=== PATIENT | female | born 1980 | race Caucasian/White ===

== ENCOUNTER 2021-06-21 13:38 | Inpatient (IN) ==
[2021-06-21] MEDS ORDERED: Isovue-370 500 ML BOTTLE IVP ONE (17:21)
[2021-06-21] MEDS ORDERED: *HR* FentaNYL (PF) 100 MCG/2 ML VIAL IVP ONE (17:30)
[2021-06-21] MEDS ORDERED: *HR* LORazepam 2 MG/ML VIAL IVP ONE (17:30)
[2021-06-21 17:57] LABS: Basophils % 0.2 %; Eosinophils % 0.1 %; Hematocrit 33.7 % (35.3-44.9); Hemoglobin 11.4 g/dL (11.5-15.4); Immature Granulocytes % 0.4 % (0-4); Lymphocytes # 1.9 K/mcL (0.6-4.6); Mean Corpuscular HGB Conc 33.8 g/dL (31.6-35.5); Mean Corpuscular Hemoglobin 31.1 pg (28.0-33.3); Mean Corpuscular Volume 91.8 fL (83.0-100.0); Mean Platelet Volume 10.2 fL (9.4-12.4); Monocytes # 1.1 K/mcL (0.0-1.3); Monocytes % 8.5 %; Neutrophils # 9.5 K/mcL (1.6-8.9); Platelet Count 229 K/mcL (140-400); Red Blood Count 3.67 M/mcL (3.82-4.97); Segmented Neutrophils % 75.8 %; White Blood Count 12.6 K/mcL (4.3-11.1)
[2021-06-21 18:22] LABS: Alanine Aminotransferase 21 Units/L (7-52); Albumin 3.1 g/dL (3.5-5.7); Albumin/Globulin Ratio 0.9 (1.1-2.2); Alkaline Phosphatase 325 Units/L (34-104); Aspartate Amino Transferase 172 Units/L (13-39); BUN/Creatinine Ratio 6 (6-26); Bilirubin,Direct 5.1 mg/dL (0.0-0.2); Bilirubin,Indirect 4.1 mg/dL (0.0-1.0); Bilirubin,Total 9.2 mg/dL (0.3-1.0); Blood Urea Nitrogen 4 mg/dL (6-20); Calcium 8.5 mg/dL (8.6-10.3); Carbon Dioxide 23 mEq/L (23-29); Chloride 99 mEq/L (98-107); Ethanol < 10 mg/dL (Less than 10); Globulin 3.4 g/dL (2.4-3.5); Glucose 92 mg/dL (70-105); Lipase 15 Units/L (11-82); Osmolality,Calculated 279 (280-300); Potassium 3.2 mEq/L (3.5-5.1); Sodium 136 mEq/L (136-145); Total Protein 6.5 g/dL (6.4-8.9); eGFR For African Americans > 60 (> 60); eGFR For Non-African Americans > 60 (> 60)
[2021-06-21 19:29] LABS: Bacteria,Urine Moderate per hpf (None-Few); Bilirubin,Urine Moderate (Negative); Blood,Urine Negative (Negative); Clarity,Urine Clear (Clear); Color,Urine Dark-Yellow (Yellow); Glucose,Urine (UA) Normal (Normal); Ketones,Urine Negative (Negative); Leukocyte Esterase,Urine Small (Negative); Mucus,Urine Few per lpf (None-Few); Nitrite,Urine Positive (Negative); PH,Urine 6.5 pH Units (5.0-8.0); Protein,Urine Trace mg/dL (Neg-Trace); Specific Gravity,Urine > 1.030 (1.010-1.025); Squamous Epithelial Cell,Urine Moderate per hpf (None-Few); Urobilinogen,Urine >=8.0 mg/dL (Normal)
[2021-06-21] MEDS ORDERED: cefTRIAXone 1,000 MG in Water for inj. (sterile) 10 ML IVP ONE (20:18)
[2021-06-21] MEDS ORDERED: Morphine Sulfate 2 MG/ML SYRINGE IVP ONE (20:21)
[2021-06-21] MEDS ORDERED: 0.9 % Sodium Chloride 1,000 ML IVC ONE (20:22)
[2021-06-21 20:34] LABS: Hepatitis B Surface Antigen Nonreactive (Nonreactive)
[2021-06-21 21:03] LABS: Hepatitis C Virus Antibody Nonreactive (Nonreactive)
[2021-06-21 21:04] LABS: Hepatitis B Core IgM Nonreactive (Nonreactive)
[2021-06-21 21:06] LABS: Hepatitis A Antibody IgM Nonreactive (Nonreactive)
[2021-06-21 21:08] LABS: INR 2.3; Prothrombin Time 25.3 Seconds (9.4-12.1)
[2021-06-21 21:11] LABS: Activated Partial Thrombo Time 46.2 Seconds (26.0-36.0)
[2021-06-21] MEDS ORDERED: Ibuprofen 400 MG TABLET PO ONE (21:18)
[2021-06-21] MEDS ORDERED: *HR* LORazepam 2 MG/ML VIAL IVP PRN ×2 (22:13)
[2021-06-21] MEDS ORDERED: Ondansetron 4 MG/2 ML VIAL IVP PRN (22:14)
[2021-06-21] MEDS ORDERED: Naloxone 0.4 MG/ML INJ IVP PRN (22:14)
[2021-06-21] MEDS ORDERED: PrednisoLONE Oral Soln 15 MG/5 ML UDC PO ONE (22:26)
[2021-06-21 22:54] LABS: Acetaminophen < 10 mcg/mL (10-20)
[2021-06-21] MEDS: Pantoprazole 40 MG VIAL IVP SCH (23:45)
[2021-06-22] MEDS: Morphine Sulfate 2 MG/ML SYRINGE IVP PRN ×3 (00:24→22:20)
[2021-06-22] MEDS ORDERED: *HR* LORazepam 2 MG/ML VIAL IVP PRN (09:58)
[2021-06-22] MEDS: Pregabalin 75 MG CAPSULE PO SCH ×2 (10:01→22:07)
[2021-06-22] MEDS: hydrOXYzine pamoate 25 MG CAPSULE PO SCH ×3 (10:01→22:10)
[2021-06-22] MEDS: Venlafaxine XR (24 HR) 75 MG CAP.ER.24H PO SCH (10:01)
[2021-06-22] MEDS: cefTRIAXone 1,000 MG in 0.9 % Sodium Chloride 10 ML IVP SCH (10:02)
[2021-06-22] MEDS: Pantoprazole 40 MG VIAL IVP SCH (10:02)
[2021-06-22 11:51] LABS: Basophils % 0.2 %; Hematocrit 35.8 % (35.3-44.9); Hemoglobin 12.5 g/dL (11.5-15.4); Immature Granulocytes % 0.4 % (0-4); Lymphocytes # 0.9 K/mcL (0.6-4.6); Lymphocytes % 9.4 %; Mean Corpuscular HGB Conc 34.9 g/dL (31.6-35.5); Mean Corpuscular Hemoglobin 32.2 pg (28.0-33.3); Mean Corpuscular Volume 92.3 fL (83.0-100.0); Mean Platelet Volume 10.4 fL (9.4-12.4); Monocytes # 0.3 K/mcL (0.0-1.3); Monocytes % 3.2 %; Neutrophils # 8.4 K/mcL (1.6-8.9); Platelet Count 209 K/mcL (140-400); Red Blood Count 3.88 M/mcL (3.82-4.97); Red Cell Distribution Width 16.7 % (11.5-14.5); Segmented Neutrophils % 86.8 %; White Blood Count 9.7 K/mcL (4.3-11.1)
[2021-06-22 11:58] LABS: INR 2.4; Prothrombin Time 26.5 Seconds (9.4-12.1)
[2021-06-22 12:00] LABS: Activated Partial Thrombo Time 45.9 Seconds (26.0-36.0)
[2021-06-22 12:34] LABS: Folate 21.3 ng/mL (3.0-16.0)
[2021-06-22 12:43] LABS: % Iron Saturation 30 % (15-50); Alanine Aminotransferase 20 Units/L (7-52); Albumin 3.1 g/dL (3.5-5.7); Albumin/Globulin Ratio 0.9 (1.1-2.2); Alkaline Phosphatase 332 Units/L (34-104); Aspartate Amino Transferase 159 Units/L (13-39); BUN/Creatinine Ratio 8 (6-26); Bilirubin,Direct 5.3 mg/dL (0.0-0.2); Bilirubin,Indirect 4.4 mg/dL (0.0-1.0); Bilirubin,Total 9.7 mg/dL (0.3-1.0); Blood Urea Nitrogen 4 mg/dL (6-20); Calcium 8.3 mg/dL (8.6-10.3); Carbon Dioxide 25 mEq/L (23-29); Chloride 103 mEq/L (98-107); Chol/HDL Ratio 23.4 (0-4.9); Cholesterol 211 mg/dL (< 200); Ferritin 92 ng/mL (10-120); Globulin 3.3 g/dL (2.4-3.5); Glucose 105 mg/dL (70-105); HDL Cholesterol 9 mg/dL (40-59); Iron 63 mcg/dL (50-170); LDL Cholesterol,Calculated 172 mg/dL (< 100); Lactate Dehydrogenase 178 Units/L (140-271); Magnesium 2.1 mg/dL (1.6-2.6); Osmolality,Calculated 279 (280-300); Phosphorous 2.2 mg/dL (2.7-4.5); Sodium 136 mEq/L (136-145); Thyroid Stimulating Hormone 2.585 mcIU/mL (0.340-5.600); Total Protein 6.4 g/dL (6.4-8.9); Transferrin 148 mg/dL (203-362); Triglycerides 148 mg/dL (< 150); Vitamin B12 > 1500 pg/mL (250-1100); eGFR For African Americans > 60 (> 60); eGFR For Non-African Americans > 60 (> 60)
[2021-06-22] MEDS ORDERED: Gadolinium Contrast Agent (WT Based) IV PRN (15:11)
[2021-06-22] MEDS: PrednisoLONE Oral Soln 15 MG/5 ML UDC PO SCH (16:45)
[2021-06-22] MEDS: rOPINIRole 0.25 MG TABLET PO SCH (22:07)
[2021-06-22] MEDS: Thiamine (B-1) 100 MG, Folic Acid 1 MG in 0.9 % Sodium Chloride 500 ML IVPB SCH (22:11)
[2021-06-23 05:59] LABS: Hematocrit 31.9 % (35.3-44.9); Immature Granulocytes % 0.7 % (0-4); Lymphocytes % 10.3 %; Mean Corpuscular HGB Conc 33.5 g/dL (31.6-35.5); Mean Corpuscular Hemoglobin 31.8 pg (28.0-33.3); Mean Corpuscular Volume 94.7 fL (83.0-100.0); Mean Platelet Volume 10.4 fL (9.4-12.4); Monocytes # 0.4 K/mcL (0.0-1.3); Monocytes % 4.7 %; Neutrophils # 7.8 K/mcL (1.6-8.9); Platelet Count 192 K/mcL (140-400); Red Blood Count 3.37 M/mcL (3.82-4.97); Red Cell Distribution Width 17.1 % (11.5-14.5); Segmented Neutrophils % 84.3 %; White Blood Count 9.2 K/mcL (4.3-11.1)
[2021-06-23 06:23] LABS: Hemoglobin 10.7 g/dL (11.5-15.4)
[2021-06-23 06:53] LABS: Alanine Aminotransferase 18 Units/L (7-52); Albumin 2.8 g/dL (3.5-5.7); Alkaline Phosphatase 282 Units/L (34-104); Aspartate Amino Transferase 129 Units/L (13-39); BUN/Creatinine Ratio 11 (6-26); Bilirubin,Total 7.3 mg/dL (0.3-1.0); Blood Urea Nitrogen 5 mg/dL (6-20); Calcium 8.1 mg/dL (8.6-10.3); Carbon Dioxide 26 mEq/L (23-29); Chloride 106 mEq/L (98-107); Globulin 2.9 g/dL (2.4-3.5); Glucose 115 mg/dL (70-105); Osmolality,Calculated 284 (280-300); Potassium 4.1 mEq/L (3.5-5.1); Sodium 138 mEq/L (136-145); Total Protein 5.7 g/dL (6.4-8.9); eGFR For African Americans > 60 (> 60); eGFR For Non-African Americans > 60 (> 60)
[2021-06-23] MEDS: Morphine Sulfate 2 MG/ML SYRINGE IVP PRN ×2 (10:17→21:03)
[2021-06-23] MEDS: cefTRIAXone 1,000 MG in 0.9 % Sodium Chloride 10 ML IVP SCH (10:18)
[2021-06-23] MEDS: hydrOXYzine pamoate 25 MG CAPSULE PO SCH ×3 (10:18→21:02)
[2021-06-23] MEDS: Venlafaxine XR (24 HR) 75 MG CAP.ER.24H PO SCH (10:18)
[2021-06-23] MEDS: Pregabalin 75 MG CAPSULE PO SCH ×2 (10:18→21:01)
[2021-06-23] MEDS: Pantoprazole 40 MG VIAL IVP SCH (10:19)
[2021-06-23] MEDS: PrednisoLONE Oral Soln 15 MG/5 ML UDC PO SCH (10:20)
[2021-06-23 10:42] LABS: INR 2.3; Prothrombin Time 25.2 Seconds (9.4-12.1)
[2021-06-23 10:54] LABS: Albumin/Globulin Ratio 0.9 (1.1-2.2); Bilirubin,Direct 4.6 mg/dL (0.0-0.2); Bilirubin,Indirect 3.2 mg/dL (0.0-1.0); Bilirubin,Total 7.8 mg/dL (0.3-1.0); Globulin 3.4 g/dL (2.4-3.5); Total Protein 6.4 g/dL (6.4-8.9)
[2021-06-23] MEDS: Thiamine (B-1) 100 MG, Folic Acid 1 MG in 0.9 % Sodium Chloride 500 ML IVPB SCH (18:20)
[2021-06-23] MEDS: rOPINIRole 0.25 MG TABLET PO SCH (21:02)
[2021-06-24] MEDS ORDERED: *HR* Enoxaparin 40 MG/0.4 ML SYRINGE SQ SCH (06:00)
[2021-06-24 06:44] LABS: Basophils % 0.2 %; Eosinophils # 0.1 K/mcL (0.0-0.6); Eosinophils % 0.9 %; Hematocrit 34.9 % (35.3-44.9); Hemoglobin 11.6 g/dL (11.5-15.4); Immature Granulocytes % 0.4 % (0-4); Lymphocytes # 1.9 K/mcL (0.6-4.6); Lymphocytes % 14.9 %; Mean Corpuscular HGB Conc 33.2 g/dL (31.6-35.5); Mean Corpuscular Hemoglobin 31.4 pg (28.0-33.3); Mean Corpuscular Volume 94.6 fL (83.0-100.0); Mean Platelet Volume 10.8 fL (9.4-12.4); Monocytes # 0.7 K/mcL (0.0-1.3); Monocytes % 5.8 %; Neutrophils # 9.8 K/mcL (1.6-8.9); Platelet Count 187 K/mcL (140-400); Red Blood Count 3.69 M/mcL (3.82-4.97); Red Cell Distribution Width 17.2 % (11.5-14.5); Segmented Neutrophils % 77.8 %; White Blood Count 12.6 K/mcL (4.3-11.1)
[2021-06-24 07:08] LABS: Alanine Aminotransferase 23 Units/L (7-52); Albumin 2.7 g/dL (3.5-5.7); Albumin/Globulin Ratio 0.9 (1.1-2.2); Alkaline Phosphatase 279 Units/L (34-104); Aspartate Amino Transferase 197 Units/L (13-39); BUN/Creatinine Ratio 13 (6-26); Bilirubin,Total 6.5 mg/dL (0.3-1.0); Blood Urea Nitrogen 7 mg/dL (6-20); Calcium 8.1 mg/dL (8.6-10.3); Carbon Dioxide 25 mEq/L (23-29); Chloride 106 mEq/L (98-107); Glucose 78 mg/dL (70-105); Osmolality,Calculated 281 (280-300); Potassium 3.5 mEq/L (3.5-5.1); Sodium 137 mEq/L (136-145); Total Protein 5.7 g/dL (6.4-8.9); eGFR For African Americans > 60 (> 60); eGFR For Non-African Americans > 60 (> 60)
[2021-06-24] MEDS: PrednisoLONE Oral Soln 15 MG/5 ML UDC PO SCH (08:33)
[2021-06-24] MEDS: Pregabalin 75 MG CAPSULE PO SCH (08:33)
[2021-06-24] MEDS: cephALEXin 500 MG CAPSULE PO SCH ×2 (08:33→14:26)
[2021-06-24] MEDS: Venlafaxine XR (24 HR) 75 MG CAP.ER.24H PO SCH (08:33)
[2021-06-24] MEDS: Pantoprazole 40 MG VIAL IVP SCH (08:33)
[2021-06-24] MEDS: hydrOXYzine pamoate 25 MG CAPSULE PO SCH ×2 (08:33→14:26)
[2021-06-24] MEDS: Morphine Sulfate 2 MG/ML SYRINGE IVP PRN ×2 (08:34→14:26)
[2021-06-24 10:16] VITALS: BP 95/59; PULSE 84; TEMP 98; O2SAT 95
[2021-06-24 12:50] LABS: AFP Tumor Marker Non-Pregnant 3 ng/mL (0-9)
[2021-06-25 08:25] LABS: F-Actin (sm muscle) Ab IgG 18 Units (0-19)
[2021-06-26 07:57] LABS: ANA IgG by ELISA NONE DETECTED (None Detected)
[2021-06-26 18:16] LABS: ANCA IFA Titer <1:20 (<1:20)
[2021-06-27 10:52] LABS: ANCA IFA Pattern NONE DETECTED (None Detected); Serine Protease-3 Antibody 1 AU/mL (0-19)
== END 2021-06-24 16:50 | disposition home health service (06) | DRG 433 ==
LOC: EMEROOARM 13:38 → 3ANU 13:38 → SUATTDRO 23:50
PROVIDERS: ADMIT Internal Medicine; ATTEND Family Medicine

== ENCOUNTER 2021-07-06 02:34 | Inpatient (IN) ==
[2021-07-06] MEDS ORDERED: cefTRIAXone 2,000 MG in 0.9 % Sodium Chloride Mini Bag 100 ML IVPB ONE (03:12)
[2021-07-06] MEDS ORDERED: *HR* OxyCODONE Immed Rel 5 MG TABLET PO ONE (03:15)
[2021-07-06] MEDS ORDERED: Isovue-370 500 ML BOTTLE IVP ONE (03:50)
[2021-07-06 04:06] LABS: Bilirubin,Urine Negative (Negative); Blood,Urine Negative (Negative); Clarity,Urine Clear (Clear); Color,Urine Light-Yellow (Yellow); Glucose,Urine (UA) Normal (Normal); Ketones,Urine Negative (Negative); Leukocyte Esterase,Urine Negative (Negative); Nitrite,Urine Negative (Negative); PH,Urine 6.5 pH Units (5.0-8.0); Protein,Urine Negative (Neg-Trace); Specific Gravity,Urine 1.008 (1.010-1.025); Urobilinogen,Urine Normal (Normal)
[2021-07-06] MEDS ORDERED: *HR* FentaNYL (PF) 100 MCG/2 ML VIAL IVP ONE ×2 (04:09→06:46)
[2021-07-06 04:32] LABS: Alanine Aminotransferase 59 Units/L (7-52); Albumin 3.2 g/dL (3.5-5.7); Alkaline Phosphatase 232 Units/L (34-104); Aspartate Amino Transferase 280 Units/L (13-39); BUN/Creatinine Ratio 14 (6-26); Bilirubin,Indirect 3.8 mg/dL (0.0-1.0); Bilirubin,Total 7.8 mg/dL (0.3-1.0); Blood Urea Nitrogen 8 mg/dL (6-20); Calcium 8.3 mg/dL (8.6-10.3); Carbon Dioxide 25 mEq/L (23-29); Chloride 103 mEq/L (98-107); Globulin 3.2 g/dL (2.4-3.5); Glucose 116 mg/dL (70-105); Lipase 12 Units/L (11-82); Magnesium 1.8 mg/dL (1.6-2.6); Osmolality,Calculated 289 (280-300); Phosphorous 2.9 mg/dL (2.7-4.5); Potassium 3.4 mEq/L (3.5-5.1); Sodium 140 mEq/L (136-145); Total Protein 6.4 g/dL (6.4-8.9); Troponin I < 0.03 ng/mL (< 0.04); eGFR For African Americans > 60 (> 60); eGFR For Non-African Americans > 60 (> 60)
[2021-07-06 04:47] LABS: Basophils % 0.1 %; Eosinophils # 0.1 K/mcL (0.0-0.6); Eosinophils % 0.5 %; Hematocrit 33.8 % (35.3-44.9); Hemoglobin 11.7 g/dL (11.5-15.4); Immature Granulocytes % 0.7 % (0-4); Lymphocytes # 0.8 K/mcL (0.6-4.6); Lymphocytes % 4.6 %; Mean Corpuscular HGB Conc 34.6 g/dL (31.6-35.5); Mean Corpuscular Hemoglobin 32.1 pg (28.0-33.3); Mean Corpuscular Volume 92.9 fL (83.0-100.0); Mean Platelet Volume 11.1 fL (9.4-12.4); Monocytes # 0.7 K/mcL (0.0-1.3); Neutrophils # 15.9 K/mcL (1.6-8.9); Platelet Count 180 K/mcL (140-400); Red Blood Count 3.64 M/mcL (3.82-4.97); Red Cell Distribution Width 17.2 % (11.5-14.5); Segmented Neutrophils % 90.1 %; White Blood Count 17.7 K/mcL (4.3-11.1)
[2021-07-06 06:10] LABS: INR 2.1; Prothrombin Time 23.3 Seconds (9.4-12.1)
[2021-07-06] MEDS ORDERED: 0.9 % Sodium Chloride 1,000 ML IVC ONE (06:45)
[2021-07-06] MEDS ORDERED: *HR* Heparin 5,000 UNIT/ML VIAL IVP PRN ×2 (06:54)
[2021-07-06] MEDS ORDERED: *HR* Heparin 5,000 UNIT/ML VIAL IVP ONE (06:54)
[2021-07-06] MEDS ORDERED: Heparin 25,000UNIT/250ML 1/2NS 25,000 UNIT/250 ML IV.SOLN IVC SCH (07:00)
[2021-07-06] MEDS ORDERED: Melatonin 3 MG TABLET PO PRN (07:34)
[2021-07-06] MEDS ORDERED: Naloxone 0.4 MG/ML INJ IVP PRN (07:34)
[2021-07-06] MEDS ORDERED: methylPREDNISolone 4 MG TABLET PO ONE (09:38)
[2021-07-06] MEDS: Venlafaxine XR (24 HR) 75 MG CAP.ER.24H PO SCH (10:15)
[2021-07-06] MEDS: Folic Acid 1 MG TABLET PO SCH (10:15)
[2021-07-06] MEDS: Thiamine (B-1) 100 MG TABLET PO SCH (10:15)
[2021-07-06] MEDS: Furosemide 40 MG TABLET PO SCH (10:15)
[2021-07-06] MEDS: Cyanocobalamin (B-12) 1,000 MCG TABLET PO SCH (10:16)
[2021-07-06] MEDS: *HR* LORazepam 0.5 MG TABLET PO PRN ×2 (10:16→17:39)
[2021-07-06] MEDS: rOPINIRole 0.25 MG TABLET PO SCH (20:09)
[2021-07-06] MEDS: hydrOXYzine pamoate 25 MG CAPSULE PO SCH (20:09)
[2021-07-07 01:47] LABS: Prothrombin Time 22.5 Seconds (9.4-12.1)
[2021-07-07 01:59] LABS: Albumin/Globulin Ratio 1.1 (1.1-2.2); Bilirubin,Direct 3.6 mg/dL (0.0-0.2); Bilirubin,Indirect 3.1 mg/dL (0.0-1.0); Bilirubin,Total 6.7 mg/dL (0.3-1.0); Globulin 2.7 g/dL (2.4-3.5); Total Protein 5.7 g/dL (6.4-8.9)
[2021-07-07] MEDS: *HR* Enoxaparin 40 MG/0.4 ML SYRINGE SQ SCH (05:36)
[2021-07-07] MEDS: Furosemide 40 MG TABLET PO SCH (09:46)
[2021-07-07] MEDS: Thiamine (B-1) 100 MG TABLET PO SCH (09:46)
[2021-07-07] MEDS: Folic Acid 1 MG TABLET PO SCH (09:48)
[2021-07-07] MEDS: Venlafaxine XR (24 HR) 75 MG CAP.ER.24H PO SCH (09:48)
[2021-07-07] MEDS: Cyanocobalamin (B-12) 1,000 MCG TABLET PO SCH (09:49)
[2021-07-07] MEDS: cefTRIAXone 2,000 MG in 0.9 % Sodium Chloride 20 ML IVP SCH (09:52)
[2021-07-07] MEDS ORDERED: predniSONE 20 MG TABLET PO SCH (10:15)
[2021-07-07] MEDS: *HR* LORazepam 0.5 MG TABLET PO PRN (17:33)
[2021-07-07] MEDS: rOPINIRole 0.25 MG TABLET PO SCH (20:53)
[2021-07-07] MEDS: hydrOXYzine pamoate 25 MG CAPSULE PO SCH (20:53)
[2021-07-08 03:26] LABS: Basophils % 0.1 %; Eosinophils % 0.2 %; Hemoglobin 10.5 g/dL (11.5-15.4); Immature Granulocytes % 0.4 % (0-4); Mean Corpuscular HGB Conc 33.9 g/dL (31.6-35.5); Mean Corpuscular Hemoglobin 32.5 pg (28.0-33.3); Mean Platelet Volume 10.7 fL (9.4-12.4); Monocytes # 0.5 K/mcL (0.0-1.3); Monocytes % 4.1 %; Neutrophils # 11.3 K/mcL (1.6-8.9); Platelet Count 149 K/mcL (140-400); Red Blood Count 3.23 M/mcL (3.82-4.97); Red Cell Distribution Width 17.2 % (11.5-14.5); Segmented Neutrophils % 87.2 %; White Blood Count 12.9 K/mcL (4.3-11.1)
[2021-07-08 03:36] LABS: INR 2.1; Prothrombin Time 22.8 Seconds (9.4-12.1)
[2021-07-08 03:39] LABS: Alanine Aminotransferase 57 Units/L (7-52); Albumin 2.9 g/dL (3.5-5.7); Albumin/Globulin Ratio 1.2 (1.1-2.2); Alkaline Phosphatase 210 Units/L (34-104); Aspartate Amino Transferase 236 Units/L (13-39); BUN/Creatinine Ratio 22 (6-26); Bilirubin,Total 6.2 mg/dL (0.3-1.0); Blood Urea Nitrogen 9 mg/dL (6-20); Calcium 8.2 mg/dL (8.6-10.3); Carbon Dioxide 27 mEq/L (23-29); Chloride 101 mEq/L (98-107); Globulin 2.4 g/dL (2.4-3.5); Glucose 101 mg/dL (70-105); Osmolality,Calculated 281 (280-300); Potassium 3.8 mEq/L (3.5-5.1); Sodium 136 mEq/L (136-145); Total Protein 5.3 g/dL (6.4-8.9); eGFR For African Americans > 60 (> 60); eGFR For Non-African Americans > 60 (> 60)
[2021-07-08] MEDS: *HR* Enoxaparin 40 MG/0.4 ML SYRINGE SQ SCH (06:15)
[2021-07-08] MEDS: *HR* LORazepam 0.5 MG TABLET PO PRN ×2 (06:20→21:12)
[2021-07-08] MEDS: methylPREDNISolone 125 MG/2 ML VIAL IVP SCH (10:58)
[2021-07-08] MEDS: cefTRIAXone 2,000 MG in 0.9 % Sodium Chloride 20 ML IVP SCH (10:58)
[2021-07-08] MEDS: Ondansetron ODT 4 MG TAB.RAPDIS SL PRN (10:59)
[2021-07-08] MEDS: Venlafaxine XR (24 HR) 75 MG CAP.ER.24H PO SCH (11:07)
[2021-07-08] MEDS: Thiamine (B-1) 100 MG TABLET PO SCH (11:08)
[2021-07-08] MEDS: Cyanocobalamin (B-12) 1,000 MCG TABLET PO SCH (11:08)
[2021-07-08] MEDS: Folic Acid 1 MG TABLET PO SCH (11:08)
[2021-07-08] MEDS: Furosemide 40 MG TABLET PO SCH (11:08)
[2021-07-08] MEDS: Venlafaxine XR (24 HR) 37.5 MG CAP.ER.24H PO SCH (12:30)
[2021-07-08] MEDS: Lactulose Oral Soln 20 GM/30 ML UDC PO SCH ×2 (12:30→21:11)
[2021-07-08] MEDS: rOPINIRole 0.25 MG TABLET PO SCH (21:12)
[2021-07-08] MEDS: hydrOXYzine pamoate 25 MG CAPSULE PO SCH (21:12)
[2021-07-08 22:43] LABS: A.calcoaceticus-baumannii cplx Not Detected (Not Detect); Bacteroides fragilis by PCR Not Detected (Not Detect); Candida albicans by PCR Not Detected (Not Detect); Candida auris by PCR Not Detected (Not Detect); Candida glabrata by PCR Not Detected (Not Detect); Candida krusei by PCR Not Detected (Not Detect); Candida parapsilosis by PCR Not Detected (Not Detect); Candida tropicalis by PCR Not Detected (Not Detect); Enterobacter cloacae Cmplx PCR Not Detected (Not Detect); Enterobacterales by PCR Not Detected (Not Detect); Enterococcus faecalis by PCR Not Detected (Not Detect); Enterococcus faecium by PCR Not Detected (Not Detect); Escherichia coli by PCR Not Detected (Not Detect); Klebs. pneumoniae group by PCR Not Detected (Not Detect); Klebsiella aerogenes by PCR Not Detected (Not Detect); Klebsiella oxytoca by PCR Not Detected (Not Detect); Proteus by PCR Not Detected (Not Detect); Pseudomonas aeruginosa by PCR Not Detected (Not Detect); Salmonella species by PCR Not Detected (Not Detect); Serratia marcescens by PCR Not Detected (Not Detect); Staph epidermidis by PCR Not Detected (Not Detect); Staph lugdunensis by PCR Not Detected (Not Detect); Staphylococcus aureus by PCR Not Detected (Not Detect); Staphylococcus by PCR Not Detected (Not Detect); Stenotrophomonas maltophilia Not Detected (Not Detect); Streptococcus agalactiae(B)PCR Not Detected (Not Detect); Streptococcus by PCR Not Detected (Not Detect); Streptococcus pneumoniae PCR Not Detected (Not Detect); Streptococcus pyogenes (A) PCR Not Detected (Not Detect); vanA/B Vancomycin-Resist Genes Not Detected (Not Detect)
[2021-07-08 22:44] LABS: Crypto. neoformans/gattii PCR Not Detected (Not Detect)
[2021-07-09] MEDS: *HR* Enoxaparin 40 MG/0.4 ML SYRINGE SQ SCH (05:52)
[2021-07-09] MEDS ORDERED: Perflutren Lipid Microsphere 1.3 ML in 0.9 % Sodium Chloride 8.7 ML IVP PRN (08:01)
[2021-07-09] MEDS ORDERED: Vancomycin 1,500 MG/265 ML IV.SOLN IVPB ONE (08:21)
[2021-07-09 10:27] LABS: Basophils % 0.1 %; Eosinophils # 0.2 K/mcL (0.0-0.6); Eosinophils % 1.1 %; Hematocrit 36.3 % (35.3-44.9); Immature Granulocytes % 0.4 % (0-4); Lymphocytes # 1.6 K/mcL (0.6-4.6); Mean Corpuscular HGB Conc 33.6 g/dL (31.6-35.5); Mean Corpuscular Hemoglobin 32.8 pg (28.0-33.3); Mean Corpuscular Volume 97.6 fL (83.0-100.0); Mean Platelet Volume 10.8 fL (9.4-12.4); Monocytes # 0.7 K/mcL (0.0-1.3); Monocytes % 4.3 %; Neutrophils # 13.4 K/mcL (1.6-8.9); Platelet Count 191 K/mcL (140-400); Red Blood Count 3.72 M/mcL (3.82-4.97); Segmented Neutrophils % 84.1 %
[2021-07-09 10:28] LABS: Hemoglobin 12.2 g/dL (11.5-15.4)
[2021-07-09] MEDS: cefTRIAXone 2,000 MG in 0.9 % Sodium Chloride 20 ML IVP SCH (10:29)
[2021-07-09] MEDS: Venlafaxine XR (24 HR) 37.5 MG CAP.ER.24H PO SCH (10:30)
[2021-07-09] MEDS: Furosemide 40 MG TABLET PO SCH (10:30)
[2021-07-09] MEDS: Folic Acid 1 MG TABLET PO SCH (10:31)
[2021-07-09] MEDS: Thiamine (B-1) 100 MG TABLET PO SCH (10:31)
[2021-07-09] MEDS: Cyanocobalamin (B-12) 1,000 MCG TABLET PO SCH (10:32)
[2021-07-09] MEDS: Lactulose Oral Soln 20 GM/30 ML UDC PO SCH ×2 (10:36→20:56)
[2021-07-09] MEDS: methylPREDNISolone 125 MG/2 ML VIAL IVP SCH (10:37)
[2021-07-09 10:44] LABS: Alanine Aminotransferase 71 Units/L (7-52); Albumin 3.3 g/dL (3.5-5.7); Albumin/Globulin Ratio 1.1 (1.1-2.2); Alkaline Phosphatase 229 Units/L (34-104); Aspartate Amino Transferase 272 Units/L (13-39); BUN/Creatinine Ratio 17 (6-26); Bilirubin,Direct 3.8 mg/dL (0.0-0.2); Bilirubin,Indirect 3.4 mg/dL (0.0-1.0); Bilirubin,Total 7.2 mg/dL (0.3-1.0); Blood Urea Nitrogen 8 mg/dL (6-20); Calcium 8.7 mg/dL (8.6-10.3); Carbon Dioxide 28 mEq/L (23-29); Chloride 102 mEq/L (98-107); Globulin 2.9 g/dL (2.4-3.5); Glucose 72 mg/dL (70-105); Osmolality,Calculated 289 (280-300); Potassium 3.8 mEq/L (3.5-5.1); Sodium 141 mEq/L (136-145); Total Protein 6.2 g/dL (6.4-8.9); eGFR For African Americans > 60 (> 60); eGFR For Non-African Americans > 60 (> 60)
[2021-07-09] MEDS: hydrOXYzine pamoate 25 MG CAPSULE PO SCH (20:56)
[2021-07-09] MEDS: rOPINIRole 0.25 MG TABLET PO SCH (20:56)
[2021-07-09] MEDS: *HR* LORazepam 0.5 MG TABLET PO PRN (20:56)
[2021-07-09] MEDS: Vancomycin 1,250 MG/262.5 ML IV.SOLN IVPB SCH (23:14)
[2021-07-10] MEDS: *HR* Enoxaparin 40 MG/0.4 ML SYRINGE SQ SCH (05:38)
[2021-07-10 06:58] LABS: Basophils % 0.1 %; Eosinophils # 0.2 K/mcL (0.0-0.6); Eosinophils % 1.2 %; Hematocrit 31.4 % (35.3-44.9); Hemoglobin 10.9 g/dL (11.5-15.4); Immature Granulocytes % 0.5 % (0-4); Lymphocytes # 1.5 K/mcL (0.6-4.6); Lymphocytes % 10.8 %; Mean Corpuscular HGB Conc 34.7 g/dL (31.6-35.5); Mean Corpuscular Hemoglobin 33.3 pg (28.0-33.3); Mean Platelet Volume 10.7 fL (9.4-12.4); Monocytes # 0.7 K/mcL (0.0-1.3); Monocytes % 4.8 %; Neutrophils # 11.3 K/mcL (1.6-8.9); Platelet Count 145 K/mcL (140-400); Red Blood Count 3.27 M/mcL (3.82-4.97); Red Cell Distribution Width 16.7 % (11.5-14.5); Segmented Neutrophils % 82.6 %; White Blood Count 13.6 K/mcL (4.3-11.1)
[2021-07-10] MEDS: Lactulose Oral Soln 20 GM/30 ML UDC PO SCH ×2 (08:40→21:32)
[2021-07-10] MEDS: Cyanocobalamin (B-12) 1,000 MCG TABLET PO SCH (08:41)
[2021-07-10] MEDS: Venlafaxine XR (24 HR) 37.5 MG CAP.ER.24H PO SCH (08:41)
[2021-07-10] MEDS: Furosemide 40 MG TABLET PO SCH (08:41)
[2021-07-10] MEDS: Folic Acid 1 MG TABLET PO SCH (08:41)
[2021-07-10] MEDS: cefTRIAXone 2,000 MG in 0.9 % Sodium Chloride 20 ML IVP SCH (08:42)
[2021-07-10] MEDS: methylPREDNISolone 125 MG/2 ML VIAL IVP SCH (08:42)
[2021-07-10] MEDS: Thiamine (B-1) 100 MG TABLET PO SCH (08:48)
[2021-07-10 08:58] LABS: Alanine Aminotransferase 60 Units/L (7-52); Albumin 2.9 g/dL (3.5-5.7); Alkaline Phosphatase 190 Units/L (34-104); Aspartate Amino Transferase 222 Units/L (13-39); BUN/Creatinine Ratio 26 (6-26); Bilirubin,Total 5.7 mg/dL (0.3-1.0); Blood Urea Nitrogen 10 mg/dL (6-20); Calcium 8.2 mg/dL (8.6-10.3); Carbon Dioxide 29 mEq/L (23-29); Chloride 102 mEq/L (98-107); Globulin 2.8 g/dL (2.4-3.5); Glucose 78 mg/dL (70-105); Osmolality,Calculated 282 (280-300); Potassium 3.8 mEq/L (3.5-5.1); Sodium 137 mEq/L (136-145); Total Protein 5.7 g/dL (6.4-8.9); eGFR For African Americans > 60 (> 60); eGFR For Non-African Americans > 60 (> 60)
[2021-07-10] MEDS: Vancomycin 1,250 MG/262.5 ML IV.SOLN IVPB SCH (09:27)
[2021-07-10 13:39] LABS: Prothrombin Time 22.6 Seconds (9.4-12.1)
[2021-07-10] MEDS: Ondansetron ODT 4 MG TAB.RAPDIS SL PRN (15:49)
[2021-07-10] MEDS: rOPINIRole 0.25 MG TABLET PO SCH (21:32)
[2021-07-10] MEDS: hydrOXYzine pamoate 25 MG CAPSULE PO SCH (21:33)
[2021-07-10] MEDS: *HR* LORazepam 0.5 MG TABLET PO PRN (21:33)
[2021-07-11] MEDS: *HR* Enoxaparin 40 MG/0.4 ML SYRINGE SQ SCH (05:51)
[2021-07-11 05:52] LABS: Basophils % 0.1 %; Eosinophils # 0.2 K/mcL (0.0-0.6); Eosinophils % 1.5 %; Hematocrit 34.6 % (35.3-44.9); Hemoglobin 11.5 g/dL (11.5-15.4); Immature Granulocytes % 0.8 % (0-4); Lymphocytes # 1.5 K/mcL (0.6-4.6); Lymphocytes % 9.2 %; Mean Corpuscular HGB Conc 33.2 g/dL (31.6-35.5); Mean Corpuscular Hemoglobin 32.4 pg (28.0-33.3); Mean Corpuscular Volume 97.5 fL (83.0-100.0); Mean Platelet Volume 10.4 fL (9.4-12.4); Monocytes # 0.7 K/mcL (0.0-1.3); Monocytes % 4.3 %; Neutrophils # 13.3 K/mcL (1.6-8.9); Platelet Count 146 K/mcL (140-400); Red Blood Count 3.55 M/mcL (3.82-4.97); Red Cell Distribution Width 16.8 % (11.5-14.5); Segmented Neutrophils % 84.1 %; White Blood Count 15.8 K/mcL (4.3-11.1)
[2021-07-11 05:58] LABS: INR 1.9; Prothrombin Time 21.2 Seconds (9.4-12.1)
[2021-07-11 06:10] LABS: Alanine Aminotransferase 63 Units/L (7-52); Albumin/Globulin Ratio 1.1 (1.1-2.2); Alkaline Phosphatase 211 Units/L (34-104); Aspartate Amino Transferase 206 Units/L (13-39); BUN/Creatinine Ratio 22 (6-26); Bilirubin,Total 5.3 mg/dL (0.3-1.0); Blood Urea Nitrogen 9 mg/dL (6-20); Calcium 8.2 mg/dL (8.6-10.3); Carbon Dioxide 29 mEq/L (23-29); Chloride 103 mEq/L (98-107); Globulin 2.8 g/dL (2.4-3.5); Glucose 89 mg/dL (70-105); Osmolality,Calculated 286 (280-300); Potassium 3.4 mEq/L (3.5-5.1); Sodium 139 mEq/L (136-145); Total Protein 5.8 g/dL (6.4-8.9); eGFR For African Americans > 60 (> 60); eGFR For Non-African Americans > 60 (> 60)
[2021-07-11] MEDS: Folic Acid 1 MG TABLET PO SCH (08:18)
[2021-07-11] MEDS: Thiamine (B-1) 100 MG TABLET PO SCH (08:19)
[2021-07-11] MEDS: Lactulose Oral Soln 20 GM/30 ML UDC PO SCH (08:19)
[2021-07-11] MEDS: Furosemide 40 MG TABLET PO SCH (08:20)
[2021-07-11] MEDS: cefTRIAXone 2,000 MG in 0.9 % Sodium Chloride 20 ML IVP SCH (08:20)
[2021-07-11] MEDS: Venlafaxine XR (24 HR) 37.5 MG CAP.ER.24H PO SCH (08:20)
[2021-07-11] MEDS: Cyanocobalamin (B-12) 1,000 MCG TABLET PO SCH (08:20)
[2021-07-11] MEDS ORDERED: PrednisoLONE Oral Soln 15 MG/5 ML UDC PO SCH (09:15)
[2021-07-11 10:09] LABS: A.calcoaceticus-baumannii cplx Not Detected (Not Detect); Bacteroides fragilis by PCR Not Detected (Not Detect); Candida albicans by PCR Not Detected (Not Detect); Candida auris by PCR Not Detected (Not Detect); Candida glabrata by PCR Not Detected (Not Detect); Candida krusei by PCR Not Detected (Not Detect); Candida parapsilosis by PCR Not Detected (Not Detect); Candida tropicalis by PCR Not Detected (Not Detect); Crypto. neoformans/gattii PCR Not Detected (Not Detect); Enterobacter cloacae Cmplx PCR Not Detected (Not Detect); Enterobacterales by PCR Not Detected (Not Detect); Enterococcus faecalis by PCR Not Detected (Not Detect); Enterococcus faecium by PCR Not Detected (Not Detect); Escherichia coli by PCR Not Detected (Not Detect); Klebs. pneumoniae group by PCR Not Detected (Not Detect); Klebsiella aerogenes by PCR Not Detected (Not Detect); Klebsiella oxytoca by PCR Not Detected (Not Detect); Proteus by PCR Not Detected (Not Detect); Pseudomonas aeruginosa by PCR Not Detected (Not Detect); Salmonella species by PCR Not Detected (Not Detect); Serratia marcescens by PCR Not Detected (Not Detect); Staph epidermidis by PCR Not Detected (Not Detect); Staph lugdunensis by PCR Not Detected (Not Detect); Staphylococcus aureus by PCR Not Detected (Not Detect); Staphylococcus by PCR Not Detected (Not Detect); Stenotrophomonas maltophilia Not Detected (Not Detect); Streptococcus agalactiae(B)PCR Not Detected (Not Detect); Streptococcus by PCR Not Detected (Not Detect); Streptococcus pneumoniae PCR Not Detected (Not Detect); Streptococcus pyogenes (A) PCR Not Detected (Not Detect)
[2021-07-11] MEDS ORDERED: Pregabalin 75 MG CAPSULE PO SCH (10:30)
[2021-07-11 16:21] VITALS: BP 129/75; PULSE 94; TEMP 98.5; O2SAT 94
== END 2021-07-11 18:19 | disposition home or self-care (01) | DRG 871 ==
LOC: EMEROOARM 02:34 → 3ANU 02:34 → SUATTDRO 07:42 → 3ANU 08:40
PROVIDERS: ADMIT Internal Medicine; ATTEND Family Medicine